=== PATIENT | male | born 1955 | race Caucasian/White ===

== ENCOUNTER → 2021-02-11 12:06 | Outpatient (BNVA) | payer OTHER, SELFPAY | PROVIDERS: Family Provider Family Medicine; Visit Provider Family Medicine | DX: Z01.812 Encounter for preprocedural laboratory examination (principal); Z20.822 Contact with and (suspected) exposure to COVID-19 | CPT/HCPCS: 87635 ==

== ENCOUNTER 2021-02-14 06:01 | Day surgery (SDC) | payer OTHER, SELFPAY ==
[2021-02-12 14:04] VITALS: BMI 24.3
[2021-02-14 06:20] VITALS: BP 109/81; PULSE 78; RESP 16; TEMP 36.3; O2SAT 96
[2021-02-14] MEDS: sodium chloride 0.9% 1,000 ML 30 ML IV (06:20)
[2021-02-14 06:34] LABS: Glucose Point of Care 114 mg/dL (70-110)
--- NOTE | 2021-02-14 06:51 | ANES.PREANE2 ---
Pre-Anesthetic Assessment Pre-Anesthetic Assessment: Height/Weight: Height 1.83 m Weight 85.729 kg Temp Pulse Resp BP Pulse Ox 97.3 F L 78 16 109/81 96 02/14/21 06:20 02/14/21 06:20 02/14/21 06:20 02/14/21 06:20 02/14/21 06:20 Preop Diagnosis: history of colon polyps Proposed Procedure: Operation Date: 02/14/21 07:00 Proposed Procedures p Colonoscopy 63184 Z86.01(Not Applicable) - Alex Davis MD Was Beta Jina taken within 24 hours: N/A Was Clonidine taken within 24 hours: N/A Last intake: Intake Last Liquid Date 02/13/21 Last Liquid Time 19:00 Last Solid Date 02/12/21 Last Solid Time 00:00 Social: Social History: No alcohol and No tobacco Exam: Pre-Anes Outpt Exam: alert, oriented x 3, clear to auscultation bilaterally and regular rate & rhythm Airway: Submandibular: WNL Cervical ROM: WNL MP: 2 Dentition: Full Pulmonary: Pulmonary: None reported CV/HEM: CV/HEM: HTN : : None reported Hepatic: Hepatic: None reported GI: GI: GERD (controlled) Metabolic: Metabolic: DM and Hyperlipidemia Musc/skel: Musc/skel: OA/DJD Comments: HIstory of MH, discussed with patient Neuropsych: Neuropsych: None reported Anesthetic Plan: ASA status: 2 Anesthesia: MAC Risk of > 500 ml blood loss (7ml/kg in children): No PFSH Anesthesia PFSH: Family History (Updated 02/12/21 @ 14:03 by Katia Duke) Other Malignant hyperthermia Data Anesthesia Other Labs: Laboratory Results - last 48 hr 02/14/21 06:30 POC Glucose 114 H Cardiac Studies: No Data to Display
--- NOTE | 2021-02-14 07:02 | W.PM.OPSUD ---
Surgery/Procedure H&P Update DATE OF PROCEDURE: February 14, 2021 DATE H&P PERFORMED: 01/22/21 PREOP DIAGNOSIS: history of colon polyps PLANNED PROCEDURE: Operation Date: 02/14/21 07:00 Proposed Procedures p Colonoscopy 50731 Z86.01(Not Applicable) - Alex Davis MD Related Problem List Diagnoses (1) History of colon polyps: We once again discussed the risks of bleeding, perforation, and sedation. The patient and his had no further questions and wished to proceed.
[2021-02-14 07:36] VITALS: BP 113/84; PULSE 98; RESP 16; TEMP 36.1; O2SAT 96
--- NOTE | 2021-02-14 07:37 | ANE.PACU2 ---
Inpatient post-anesthesia follow up: Airway intact: Yes Vital signs: Temperature 97.3 F Pulse Rate 78 Respiratory Rate 16 Blood Pressure 109/81 Pulse Oximetry 96 Oxygen Delivery Me thod Room Air Oxygen Flow Rate Fraction of Inspir ed Oxygen Hydration adequate: Yes Nausea and vomiting: No Pain level: 1 Mental status: Baseline
[2021-02-14 07:55] VITALS: BP 119/77; PULSE 95; RESP 18; O2SAT 97
--- NOTE | 2021-02-14 09:20 | ANE.PACU2 ---
Inpatient post-anesthesia follow up: Airway intact: Yes Vital signs: Temperature 97 F Pulse Rate 95 Respiratory Rate 18 Blood Pressure 119/77 Pulse Oximetry 97 Oxygen Delivery Me thod Room Air Oxygen Flow Rate Fraction of Inspir ed Oxygen Hydration adequate: Yes Nausea and vomiting: No Pain level: 1 Mental status: Baseline
== END 2021-02-14 08:09 | disposition home or self-care (01) ==
PROVIDERS: Visit Provider Family Medicine
PROC: 0DJD8ZZ Inspection of Lower Intestinal Tract, Via Natural or Artificial Opening Endoscopic (ICD-10-PCS; CPT 45378; principal; 2021-02-14 07:00)
DX: Z12.11 Encounter for screening for malignant neoplasm of colon (principal); Z86.010 Personal history of colon polyps; K21.9 Gastro-esophageal reflux disease without esophagitis; E78.2 Mixed hyperlipidemia; E11.9 Type 2 diabetes mellitus without complications; I10 Essential (primary) hypertension; Z79.84 Long term (current) use of oral hypoglycemic drugs
CPT/HCPCS: 12345; 36416; 45378; 82962; 96360; 96361; J2704; J3490; J7030

== ENCOUNTER 2021-10-30 07:06 | Outpatient (CLI) | payer OTHER, MEDICARE, SELFPAY ==
--- NOTE | 2021-10-30 07:13 | MR_ITS ---
WS: [id number] MRI LEFT SHOULDER HISTORY: INJURY OF LEFT ROTATOR CUFF COMPARISON: None available. TECHNIQUE: Multiplanar sequences of the shoulder joint are submitted. Mild AC joint arthritis. Joint space narrowing with a small amount of edema in the acromion. There is mild soft tissue thickening and increased signal. Small amount of fluid in the subacromial and subde ltoid bursa. Osteophyte along the distal undersurface of the acromion with the base measuring 10 mm e ncroaches upon the supraspinatus tendon. Small loose bodies are noted within the bursal fluid. No os acromion. Biceps tendon in the bicipital groove. Small amount of increased fluid in the biceps tendon sheath. Bursal surface tear involving the supraspinatus tendon at the level of the acromion. Tear extends lucien roximately 50% through the tendon and there is a additional tendinopathy. Insertion site tear of the anterior supraspinatus also noted. No retraction of the tendon. There is also focal tear in the subsc apularis tendon seen best on the sagittal T2 with fat saturation. Infraspinatus tendon is intact. Moderate amount of fluid in the subscapularis recess with small loose bodies. Minimally complex tear involving the base of the superior labrum. Mildly high riding humeral head. No fracture or marrow edema at the humeral head. MR/MR shoulder LT wo con* [id number] IMPRESSION: 1. Bursal surface tear involving 50% supraspinatus tendon at the level of the acromial spur. 2. Additional insertion site tear supraspinatus tendon without retraction. 3. Focal linear increased signal in the distal subscapularis tendon highly lexi picious for tear. No retraction. 4. Small loose bodies in the subacromial and some bursal fluid and also the silverio bscapularis recess. 5. Mild AC joint arthritis with encroachment upon the rotator cuff by osteophy te disease.
== END 2021-10-30 07:07 | disposition home or self-care (01) ==
LOC: RAD 07:09
PROVIDERS: PCP Family Medicine; Visit Provider Family Medicine
DX: S46.002A Unspecified injury of muscle(s) and tendon(s) of the rotator cuff of left shoulder, initial encounter (principal); M75.102 Unspecified rotator cuff tear or rupture of left shoulder, not specified as traumatic; X58.XXXA Exposure to other specified factors, initial encounter
CPT/HCPCS: 73221

== ENCOUNTER 2022-10-23 05:45 | Day surgery (SDC) | payer MEDICARE, OTHER, SELFPAY ==
[2022-10-05 10:11] VITALS: BMI 27.8
[2022-10-23 06:03] VITALS: BP 137/85; PULSE 64; RESP 18; TEMP 36.3; O2SAT 97
[2022-10-23] MEDS: sodium chloride 0.9% 1,000 ML 30 ML IV (06:25)
[2022-10-23] MEDS: acetaminophen 1,000 MG/100 ML PIGGYBACK 400 MG IV (06:25)
[2022-10-23 06:27] LABS: Glucose Point of Care 174 mg/dL (70-110)
--- NOTE | 2022-10-23 06:34 | ANES.PREANE2 ---
Pre-Anesthetic Assessment Height/Weight: Height 1.83 m Weight 92.986 kg Temp Pulse Resp BP Pulse Ox O2 Del Method 97.4 F L 64 18 137/85 97 10/23/22 06:03 10/23/22 06:03 10/23/22 06:03 10/23/22 06:03 10/23/22 06:03 10/23/22 06:03 Preop Diagnosis: Left middle finger trigger Operation Date: 10/23/22 07:00 Proposed Procedures p Left long trigger finger 73716,M65.30(Left) - Steve Murphy DO Familial anesthetic complications: Significant family history of MH. discussed with patient Local/MAC planned, machine prepared according to manufacture requirement. Last intake: Intake Last Liquid Date 10/22/22 Last Liquid Time 21:00 Last Solid Date 10/22/22 Last Solid Time 19:30 Social No alcohol and No tobacco Airway Mallampati: Class II Pulmonary None reported CV/HEM Hypertension (on medication) None reported Hepatic None reported GI Gastroesophageal Reflux Disease Metabolic Diabetes Mellitus and Hyperlipidemia [facility] Osteoarthritis/DJD Neuropsych None reported Anesthetic Plan ASA status: 3 Medications/Allergies Home Medications Medication Instructions Recorded Confirmed Last Taken Type atorvastatin 40 mg tablet 40 mg PO DAILY 02/12/21 10/05/22 10/21/22 History esomeprazole magnesium 20 mg 20 mg PO DAILY 02/12/21 10/05/22 10/22/22 History capsule,delayed release (Nexium) lisinopril 10 mg tablet 10 mg PO BID 02/12/21 10/05/22 10/22/22 History metformin 500 mg tablet,extended 500 mg PO BID 02/12/21 10/22/22 10/22/22 History release 24 hr hydrocodone 5 mg-acetaminophen 325 1 tab PO 3XD PRN pain 3 days #9 10/23/22 Unknown Rx mg tablet tabs Allergies Allergy/AdvReac Type Severity Reaction Status Date / Time secobarbital [From Seconal] Allergy Unknown Verified 09/21/22 08:31 succinylcholine Allergy Unknown Verified 09/21/22 08:31 [facility] Anesthesia Medical History (Updated 09/25/22 @ 17:16 by Steve Murphy DO) Trigger finger, left middle finger Trigger finger, right middle finger Family History Other Malignant hyperthermia Social History Smoking and tobacco status: never smoked Data Anesthesia Cardiac Studies: No Data to Display
--- NOTE | 2022-10-23 06:39 | W.PM.OPSFHP ---
Same Day Surgery H&P Indication for Procedure/HPI DATE OF PROCEDURE: October 23, 2022 CHIEF COMPLAINT/INDICATIONFOR SURGICAL PROCEDURE: Left middle finger trigger PREOP DIAGNOSIS: Left middle finger trigger PLANNED PROCEDURE: Operation Date: 10/23/22 07:00 Proposed Procedures p Left long trigger finger 40970,M65.30(Left) - Steve Murphy DO Patient's been seen and worked up in the outpatient setting.. He has bilateral middle finger trigger fingers. The been locking for almost 2 years. At this point I will mechanically lock and he is to unlock them with his other fingers. He is tried medications without relief. This point time would like to forego corticosteroid injections and would like to have his trigger finger release. We will start with his left middle trigger finger. Medications/Allergies* Home Medications Medication Instructions Recorded Confirmed Type atorvastatin 40 mg tablet 40 mg PO DAILY 02/12/21 10/05/22 History esomeprazole magnesium 20 mg 20 mg PO DAILY 02/12/21 10/05/22 History capsule,delayed release (Nexium) lisinopril 10 mg tablet 10 mg PO BID 02/12/21 10/05/22 History metformin 500 mg tablet,extended 500 mg PO BID 02/12/21 10/22/22 History release 24 hr Allergies/Adverse Reactions Allergy/AdvReac Type Severity Reaction Status Date / Time secobarbital [From Seconal] Allergy Unknown Verified 09/21/22 08:31 succinylcholine Allergy Unknown Verified 09/21/22 08:31 Pertinent History/Comorbid Conditions* Medical History (Updated 09/25/22 @ 17:16 by Steve Murphy DO) Trigger finger, left middle finger Trigger finger, right middle finger Family History (Updated 02/12/21 @ 14:03 by Katia Duke RN) Malignant hyperthermia Social History Smoking and tobacco status: never smoked Pertinent Exam Findings alert, oriented x 3, operative site marked and procedure specific exam findings Examination of the left hand demonstrates severe tenderness to palpation over the left A1 juanjo of the middle finger.? Patient can mechanically trigger and has to use his other hand to unlock his left middle finger consistent with trigger finger.? Severe pain over the A1 juanjo.? No triggering noted to the thumb index ring or small finger.? Sensation intact to light touch distally.? Negative exam findings of carpal tunnel syndrome or cubital tunnel syndrome. Recommendations Surgery/Procedure today Other Plans: Plan for or today for left middle finger trigger release. In the office we detailed out the risk benefits complication alternatives to surgical and nonsurgical treatment options. Understanding his risks he agrees to proceed with surgical intervention. All questions been answered at this time. Consent signed and preoperative area today and reviewed with patient. Patient elects proceed with surgery. Coding Level of Care Code Acute Code for Chg Fwd Time Spent (min) 15
[2022-10-23] MEDS: ketorolac 30 mg/mL INJ IVP (06:52)
[2022-10-23] MEDS: ceFAZolin 2,000 MG in sodium chloride 0.9% (plus) 50 ML 100 MG IV (06:56)
[2022-10-23 07:04] LABS: Anion Gap 17.3 (5-19); Blood Urea Nitrogen 14 mg/dL (8-23); Calcium 8.9 mg/dL (8.5-10.5); Carbon Dioxide 24 mmol/L (22-29); Chloride 101 mmol/L (98-107); Creatinine Clr Calc Pharmacy 95.6455; Glomerular Filtration Rate 84.4 mL/min (90-130); Glucose 172 mg/dL (65-115); Osmolality Calculated 291 mOsm/kg (285-295); Potassium 4.3 mmol/L (3.5-5.1); Sodium 138 mmol/L (136-145)
[2022-10-23 07:30] VITALS: BP 148/86; PULSE 67; RESP 12; TEMP 36.1; O2SAT 97
--- NOTE | 2022-10-23 07:31 | P.OP_ITS ---
Operative Report Date of procedure: October 23, 2022 Pre-op diagnosis: Preop Diagnosis Left middle finger trigger Post-op diagnosis: Same Procedure done: Left middle finger trigger release Surgeon: Steve Murphy DO Estimated blood loss: 1cc 7mL Complications: None Condition: stable Disposition: same day Brief History: Patient's been seen and worked up in the outpatient setting and findings consistent with preoperative diagnosis of left middle finger trigger. He is failed conservative treatment. Continues to have mechanical locking and catching. Severe pain as well. We talked about treatment options nonoperative versus operative intervention. He is failed conservative treatment at this point and ultimately decided to forego a corticosteroid injection and have this done under a more permanent fix. Patient understands the risk benefits complication alternatives of surgical nonsurgical treatment options. Understanding his risks with surgery he elects proceed with surgical interventio n. Consent obtained in the office. Here today to proceed with surgical intervention. All questions answered. Procedure: Patient was seen and evaluated in the preoperative holding area. Consent was reviewed and signed with patient. Seen evaluated by Anesthesia Department. Once cleared for surgery was brought back to the operative suite. Placed in supine position on the OR table all bony prominences well-padded patient properly secured to the bed. Patient's left arm was then placed to the left armboard. A nonsterile tourniquet applied to the left upper arm. Patient's left upper extremity was then prepped and draped in standard orthopedic fashion. Final timeout performed. Patient received appropriate preoperative antibiotics. Esmarch tourniquet was used exsanguinate the left upper extremity tourniquet insufflated to 250 mmHg. Under sterile aseptic technique local digital block was performed to the left middle finger. Once appropriately anesthetized a standard oblique incision was made centering over the A1 juanjo following patient's flexor crease. Sharp scalpel incision was made only through skin and then switched to Littler dissection scissors and spread longitudinally directly over the flexor tendon sheath. I then mobilized both radially and ulnarly and Kasdan retractors were used and placed by my cardiovascular physician assistant to protect neurovascular bundle. Next I visualized the A1 juanjo and this was incised with a scalpel. I then switched to dissection scissors and released the A1 juanjo both proximally as well as distally to its entirety. Significant tendon sheath fluid was noted consistent with inflammation. Mild fraying of the flexor tendons noted but no tear. At this point I utilized a rag nail and pulled the tendons FDS and FDP out of the incision and no triggering was noted. I then had anesthesia wake up the patient and patient was able to actively flex and extend with no triggering. This point thorough irrigation was performed. Tourniquet deflated hemostasis satisfactory with bipolar. I then subsequently closed the incision with interrupted nylon suture. Xeroform 4 x 4's, Kerlix and an Herminio wrap was applied for a bulky soft dressing. Patient was then subsequently awakened from anesthesia and taken to PACU in stable condition tolerated procedure without issues. Disposition: Patient taken back in stable condition recovering well. Patient will receive appropriate discharge instruction as well as pain medication postoperatively. Patient to follow-up with me in the office in 2 weeks for repe at evaluation and incision check. Patient understands that any questions or concerns and contact the office. All questions answered.
--- NOTE | 2022-10-23 07:31 | PM.OP2 ---
Brief Operative Note Date of procedure: 10/23/22 Pre-op diagnosis: Left middle finger trigger Post-op diagnosis: same Procedure Done: Left middle finger trigger release Surgeon: Steve Murphy Estimated blood loss (mL): 2 Complications: None Post-op Plan: Patient taken to PACU in stable condition. Recovering well. Dressings on in place clean dry and intact. Will receive appropriate discharge instructions as well as pain medication postoperatively. Weightbearing as tolerated and range of motion as tolerated to the hand. We will follow-up with me in the office in 2 weeks. Condition: stable Disposition: same day Coding Level of Care Code Acute Code for Gayle Johnston
--- NOTE | 2022-10-23 07:31 | PM.PACU ---
PACU note Narrative: Patient seen and examined in PACU recovering well. Dressing on in place clean dry and intact. Patient is able to wiggle fingers. Brisk cap refill less than 2 seconds. Decreased sensation to the left middle finger secondary to local anesthesia. Exam: awake Disposition: discharged
[2022-10-23 07:35] VITALS: BP 149/79; PULSE 70; RESP 16; O2SAT 95
[2022-10-23 07:40] VITALS: BP 150/84; PULSE 65; RESP 18; TEMP 36.2; O2SAT 95
[2022-10-23 07:47] VITALS: BP 163/98; PULSE 62; RESP 16; TEMP 36.3; O2SAT 97
[2022-10-23 08:00] VITALS: BP 166/94; PULSE 54; RESP 18; O2SAT 96
--- NOTE | 2022-10-23 14:03 | ANE.PACU2 ---
Inpatient post-anesthesia follow up: Airway intact: Yes Vital signs: Temperature 97.4 F Pulse Rate 54 Respiratory Rate 18 Blood Pressure 166/94 Pulse Oximetry 96 Oxygen Delivery Me thod Room Air Oxygen Flow Rate 6 Fraction of Inspir ed Oxygen Hydration adequate: Yes Nausea and vomiting: No Pain level: 1 Mental status: Baseline
== END 2022-10-23 08:28 | disposition home or self-care (01) ==
PROVIDERS: Anesthesiology; PCP Family Medicine; Visit Provider Student in an Organized Health Care Education/Training Program
PROC: (CPT 26055; principal; 2022-10-23 07:00)
DX: M65.332 Trigger finger, left middle finger (principal); I10 Essential (primary) hypertension; K21.9 Gastro-esophageal reflux disease without esophagitis; E11.9 Type 2 diabetes mellitus without complications; E78.5 Hyperlipidemia, unspecified; Z79.84 Long term (current) use of oral hypoglycemic drugs
CPT/HCPCS: 26055; 36416; 80048; 82962; A4216; J0131; J0690; J1885; J2704; J2795; J3010; J3490; J7030

== ENCOUNTER 2023-01-06 06:00 | Outpatient (RCR) | payer MEDICARE, OTHER, SELFPAY | END 2023-01-10 23:59 | disposition home or self-care (01) | LOC: SOT 06:00 | PROVIDERS: Visit Provider Student in an Organized Health Care Education/Training Program | DX: Z47.89 Encounter for other orthopedic aftercare (principal) | CPT/HCPCS: 97110; 97165 ==

== ENCOUNTER 2023-01-11 06:00 | Outpatient (RCR) | payer MEDICARE, OTHER, SELFPAY | END 2023-02-10 23:59 | disposition home or self-care (01) | LOC: SOT 06:00 | PROVIDERS: Visit Provider Student in an Organized Health Care Education/Training Program | DX: Z47.89 Encounter for other orthopedic aftercare (principal) | CPT/HCPCS: 97022; 97035; 97110; 97140; 97165 ==

== ENCOUNTER → 2023-02-25 07:08 | Outpatient (BNVA) | payer MEDICARE, OTHER, SELFPAY | PROVIDERS: Visit Provider Student in an Organized Health Care Education/Training Program | DX: M65.331 Trigger finger, right middle finger (principal); M65.341 Trigger finger, right ring finger | CPT/HCPCS: 99214 ==

== ENCOUNTER 2023-03-03 05:37 | Day surgery (SDC) | payer MEDICARE, OTHER, SELFPAY ==
[2023-03-02 12:31] VITALS: BMI 27.8
[2023-03-03] VITALS (7 sets, daily range): BP systolic 119–159; BP diastolic 74–94; PULSE 55–65; RESP 16; TEMP 36.1–36.6; O2SAT 93–96
[2023-03-03 06:13] LABS: Glucose Point of Care 133 mg/dL (70-110)
[2023-03-03] MEDS: acetaminophen 1,000 MG/100 ML PIGGYBACK 400 MG IV (06:20)
[2023-03-03] MEDS: ketorolac 30 mg/mL INJ IVP (06:27)
[2023-03-03] MEDS: sodium chloride 0.9% 1,000 ML 30 ML IV (06:27)
--- NOTE | 2023-03-03 06:44 | W.PM.OPSUD ---
Surgery/Procedure H&P Update DATE OF PROCEDURE: March 03, 2023 DATE H&P PERFORMED: 02/25/23 CHANGES TO PREVIOUS DOCUMENTATION: None. No changes in HPI from 02/25/2023. Patient understands risk benefits complication alternatives of surgery and elects proceed with right ring finger and right middle finger trigger release. Patient understands and agrees to current plan. All questions answered. PREOP DIAGNOSIS: right ring and right middle finger trigger PRIMARY INDICATION FOR PROCEDURE: Right ring and right middle trigger finger PLANNED PROCEDURE: Operation Date: 03/03/23 07:00 Proposed Procedures p right ring and right middle finger trigger finger release 79781,M65.331, M65.341,M79.643(Right) - Steve Murphy DO
[2023-03-03] MEDS: ceFAZolin 2,000 MG in sodium chloride 0.9% (plus) 50 ML 100 MG IV (06:58)
--- NOTE | 2023-03-03 07:46 | PM.OP2 ---
Brief Operative Note Date of procedure: 03/03/23 Pre-op diagnosis: Right ring finger and right middle finger trigger Post-op diagnosis: same Procedure Done: 1.?Right ring finger trigger release 2.?Right middle finger trigger release Surgeon: Steve Murphy Estimated blood loss (mL): 3 Complications: None Post-op Plan: Patient taken to PACU in stable condition recovering well. Pain controlled. Patient will receive appropriate discharge instructions as well as pain medication postoperatively. Patient to follow-up in the orthopedic office in 2 weeks. Condition: stable Disposition: same day Coding Level of Care Code Acute Code for Gayle Johnston
--- NOTE | 2023-03-03 07:51 | P.OP_ITS ---
Operative Report Date of procedure: March 03, 2023 Pre-op diagnosis: Preop Diagnosis right ring and right middle finger trigger Procedure: Post-op diagnosis: ?same Procedure done: Right Middle Finger trigger release Right Ring Finger trigger release Surgeon: Steve Murphy DO Estimated blood loss: 3 mL Tourniquet time 13 minutes Anesthesia: Local/MAC Complications: None Condition: stable Disposition: same day Brief History: Patient been seen and evaluated in the outpatient setting for right middle and ring finger trigger consistent with preoperative diagnosis.?? we talked about treatment options far as nonoperative and operative intervention.? Given patient's severe mechanical triggering and disabling of daily activities as well as pain he would like to have this taken care of more permanently with surgical intervention.? At this point time through shared decision making patient would like to proceed with a right middle and ring finger trigger releases surgery. we talked about the risk benefits complication alternatives to each treatment option understanding his risk for surgery patient agrees to proceed with silverio rgical intervention.? All questions answered.? Consent reviewed and signed with patient. Procedure: Patient presented to the preoperative holding area consent was reviewed and signed with patient.? Correct extremity/digits was then marked.? Patient seen evaluated by anesthesia once cleared for surgery was taken back to the operative suite.? Transported on the OR table in supine position all bony prominences well-padded patient was appropriate secured to bed.? Armboard was applied to the right arm.??Nonsterile tourniquet applied to the right upper arm.? Patient underwent anesthesia per the anesthesia department.? Patient's right upper extremity was then prepped and draped in standard orthopedic fashion.? Final timeout performed.? Patient received appropriate preoperative antibiotics. Under sterile aseptic technique a local digital block was then performed for planned incision site of the right middle and ring finger.? Esmarch tourniquet was used exsanguinate the right upper extremity.? Tourniquet was insufflated to 250 mmHg. A standard horizontal/oblique incision centering over the right ring and middle fingers I incorporated patient's distal palmar crease in order to high the i ncision and to follow with Garrick's lines. Sharp scalpel incision was made strictly through just skin.? I then switched to Littler dissection scissors and dissected and spread longitudinally in the planes of the neurovascular bundle and longitudinally in line with the flexor tendon sheath starting over the middle finger.? Once soft tissue mobilized over the tendon I then placed Kasdan retractors to protect the neurovascular bundle and identified the proximal portion of the A1 juanjo.? This was then incised with a sharp scalpel and then switched to dissection scissors to complete the A1 juanjo release distally.? FDS and FDP tendons were intact.? I utilized a rag nail to pull the tendon through the incision site and inspected each of the FDS and FDP tendons which no evidence of tear or rupture.? No evidence of clicking noted.? Next I switched my plan of dissection over the right ring finger. Through the same incision I spread longitudinally in-plane with the ring finger directly over the flexor tendon sheath. Spread longitudinally in the planes of the neurovascular bundle and longitudinally in line with the flexor tendon sheath. With soft tissue mobilized over the tendon I placed Kasdan retractors to protect the neurovascular bundles and identified the proximal portion of A1 juanjo I then sized this with sharp scalpel incision was switched to Littler dissection scissors to complete the A1 juanjo release distally in the ring finger. FDS and FDP tendons were intact. I used a rag nail to pull the tendon through the incision inspected each tendon and they were healthy with no evidence of tear or rupture. No evidence of triggering or clicking was noted. Patient was then awakened from MAC anesthetic and instructed to make a fist and confirmed that there was no recurrent triggering.? This completed the procedure tourniquet was deflated hemostasis satisfactory bipolar electrocautery.? I then thoroughly irrigated the incision site and then closed the incision with interrupted nylon suture.? Incision dressed with Xeroform 4 x 4's fluffs Kerlix and an Herminio wrap.? Patient was then taken to PACU in stable condition. Disposition: Patient taken PACU in stable condition recovering well dressings on in place clean dry and intact.? Patient receive appropriate discharge structure as well as pain medication postoperatively.? Patient follow-up in the orthopedic office in 2 weeks.? Patient understands agrees with current plan.? All questions answered.
--- NOTE | 2023-03-03 07:51 | PM.PACU ---
PACU note Narrative: Patient taken to PACU in stable condition recovering well dressings on in place clean dry and intact fingertips warm well-perfused brisk capillary refill less than 2 seconds patient is able to wiggle fingers as well as make a fist without any triggering. Decreased sensation of the middle and ring secondary to local anesthesia Exam: awake Disposition: discharged
--- NOTE | 2023-03-03 09:43 | ANES.PREANE2 ---
Pre-Anesthetic Assessment Height/Weight: Height 1.83 m Weight 92.986 kg Temp Pulse Resp BP Pulse Ox O2 Del Method 98 F 62 16 158/80 96 Room Air 03/03/23 08:00 03/03/23 08:15 03/03/23 08:15 03/03/23 08:15 03/03/23 08:15 03/03/23 08:15 Preop Diagnosis: right ring and right middle finger trigger Operation Date: 03/03/23 07:00 Proposed Procedures p right ring and right middle finger trigger finger release [id number],M65.331, M65.341,M79.643(Right) - Steve Murphy, Familial anesthetic complications: Fm Hx MH Was Beta Jina taken within 24 hours: N/A Was Clonidine taken within 24 hours: N/A Last intake: Intake Last Liquid Date 03/02/23 Last Liquid Time 19:00 Last Solid Date 03/02/23 Last Solid Time 19:00 Social No alcohol and No tobacco Exam alert, oriented x 3, clear to auscultation bilaterally and regular rate & rhythm Airway Submandibular: within normal limits Cervical ROM: within normal limits Mallampati: Class II Dentition: full CV/HEM Hypertension GI Gastroesophageal Reflux Disease Metabolic Diabetes Mellitus and Hyperlipidemia Anesthetic Plan ASA status: 3 Anesthesia: MAC Other: precautions Medications/Allergies Home Medications Medication Instructions Recorded Confirmed Last Taken Type atorvastatin 40 mg tablet 40 mg PO DAILY 02/12/21 03/03/23 03/02/23 History esomeprazole magnesium 20 mg 20 mg PO DAILY 02/12/21 03/03/23 03/02/23 History capsule,delayed release (Nexium) lisinopril 10 mg tablet 10 mg PO BID 02/12/21 03/03/23 03/02/23 History metformin 500 mg tablet,extended 500 mg PO BID 02/12/21 03/03/23 03/02/23 History release 24 hr doxycycline hyclate 100 mg capsule 100 mg PO BID 03/02/23 03/03/23 03/02/23 History hydrocodone 5 mg-acetaminophen 325 1 tab PO Q6H PRN pain 5 days #20 03/03/23 Unknown Rx mg tablet tabs ondansetron 4 mg disintegrating 4 mg PO DAILY 5 days #5 tabs 03/03/23 Unknown Rx tablet Allergies Allergy/AdvReac Type Severity Reaction Status Date / Time secobarbital [From Secon[place]] Allergy Unknown Verified 03/02/23 12:28 succinylcholine Allergy Unknown Verified 03/02/23 12:28 Current Medications Generic Name Dose Route Start Last Admin Trade Name Ruddyq PRN Reason Stop Dose Admin Sodium Chloride 1,000 mls @ 30 mls/hr 03/03/23 06:45 03/03/23 06:27 Sodium Chloride 0.9% IV 03/04/23 06:44 30 mls/hr .Q24H FABIO Administration PFSH Anesthesia Medical History Trigger finger, left middle finger Trigger finger, right middle finger Family History Other Malignant hyperthermia Social History Smoking and tobacco status: never smoked Data Anesthesia Cardiac Studies: No Data to Display
--- NOTE | 2023-03-03 14:12 | ANE.PACU2 ---
Inpatient post-anesthesia follow up: Airway intact: Yes Vital signs: Temperature 98 F Pulse Rate 62 Respiratory Rate 16 Blood Pressure 158/80 Pulse Oximetry 96 Oxygen Delivery Me thod Room Air Oxygen Flow Rate Fraction of Inspir ed Oxygen Hydration adequate: Yes Nausea and vomiting: No Pain level: 2 Mental status: Baseline
== END 2023-03-03 09:00 | disposition home or self-care (01) ==
PROVIDERS: PCP Family Medicine; Visit Provider Student in an Organized Health Care Education/Training Program
PROC: (CPT 26055; principal; 2023-03-03 07:00)
DX: M65.351 Trigger finger, right little finger (principal); M65.331 Trigger finger, right middle finger; E11.9 Type 2 diabetes mellitus without complications; I10 Essential (primary) hypertension; E78.5 Hyperlipidemia, unspecified; K21.9 Gastro-esophageal reflux disease without esophagitis; Z79.84 Long term (current) use of oral hypoglycemic drugs
CPT/HCPCS: 26055; 36416; 82962; J0131; J0690; J1885; J2250; J2704; J2795; J3010; J3490; J7030

== ENCOUNTER → 2023-03-15 09:43 | Outpatient (BNVA) | payer MEDICARE, OTHER, SELFPAY | PROVIDERS: PCP Family Medicine; Visit Provider Student in an Organized Health Care Education/Training Program | DX: M65.331 Trigger finger, right middle finger (principal); M65.341 Trigger finger, right ring finger | CPT/HCPCS: 99024 ==

== ENCOUNTER 2023-04-15 08:16 | Outpatient (CLI) | payer MEDICARE, OTHER, SELFPAY ==
--- NOTE | 2023-04-15 | ECG_ITS ---
[facility] Test Date: 2023-04-15 Pat Name: Tony Harris Department: Room: Gender: Male Lighting Fixture Installer: Geeta LoyaRodrigue : 1955 Requested By: Wendi Hope Order Number: [id number] Jeff MD: Cecily Recio M.D. Interpretive Statements NAME OF STUDY: EXERCISE SESTAMIBI STRESS TEST INDICATION: Exertional shortness of Breath Baseline blood pressure of 119/80 mm Hg, heart rate 49 beats per minute and oxygen saturation of 97%. EKG showed sinus bradycardia, normal axis with normal ST-Ts. The patient exercised for 4 minutes 57 seconds on a standard Mariano protocol. Patient attained a maximum heart rate of 141 beats per minute(91% of the maximum predicted heart rate) with a blood pressure at the peak exercise of 153/61 mm Hg oxygen saturation of 96%. The EKG at the peak exercise revealed sinus tachycardia with horizontal and upsloping 1-1/[address] depression in lead II, 3, aVF V3 to V6 with frequent isolated PVCs and PVC couplets noted at peak exercise. Patient did not have any chest pain but did develop throat tightness at peak exercise and in early recovery. Frequent isolated PVCs and occasional PVC couplets noted during exercise. During the recovery phase, there were no new changes. Blood pressure at the end of the recovery phase was 141/80 mm Hg with a heart rate of 89 beats per minute oxygen saturation of 97%. Frequent isolated PVCs and PVC couplets noted in recovery CONCLUSION: 1. Positive EKG response to treadmill exercise with horizontal and upsloping 1-1/[address] depression in lead II, 3, aVF V3 to V6 with frequent isolated PVCs and PVC couplets noted at peak exercise. 2. He developed throat tightness at peak exercise and in early recovery. Frequent isolated PVCs and occasional PVC couplets noted during exercise 3. Fair exercise tolerance, attained a maximum of 7 METs. Maximum VO2 of 24.5 mL/kg/min. 4. Baseline normal blood pressure with normal response to exercise. 5. Perfusion scan will be documented separately. Electronically Signed On 04-15-2023 16:39:25 CDT by Cecily Recio M.D. [id number]
[2023-04-15 08:41] VITALS: BMI 27.8
--- NOTE | 2023-04-15 08:41 | NMCV_ITS ---
NM priti perf SPECT r/s* [id number] Tony Harris Age: 67 Gender: M : 1955 Exam Date: 04/15/2023 08:41 Ordering Phys: Wendi Leyva MD Technologist: MAXIME Albarado Exam Location: [facility] Indications: Chest Pain STRESS TEST Please see separate stress test report in [facility] for full findings IMAGE PROTOCOL Rest/Stress 1 Radiopharmaceutical Dose (mCi) Administration Site Administered by Rest: Tc-99m 10.8 IV MAXIME Albarado Sestamibi Stress:Tc-99m 32.7 IV MAXIME Coto Sestamibi Rest: 15-Apr-2023 60 Discovery 630 Stress: 15-Apr-2023 30 Discovery 630 Images obtained in supine and prone position. Radiopharmaceutical was injected at 86 % maximum heart rate. SPECT RESULTS Technical Quality: Excellent Raw Data Analysis: Normal Image Corrections: No attenuation or motion correction applied Summed Stress Score: 0 Summed Rest Score: 2 Summed Difference Score: 0 PERFUSION FINDINGS SPECT images demonstrate homogeneous tracer distribution throughout the myocardium. FUNCTIONAL RESULTS (calculated via Gated SPECT) Stress Image LV EF (%): 70 Stress EDV (mL):122 TID: 0.95 Stress ESV (mL):36 FUNCTIONAL FINDINGS: The left ventricle is normal in size. Transient Ischemia Dilatation of 0.95. The left ventricular ejection fraction is normal with a value of 70%. There is normal left ventricular wall thickening. Normal end-diastolic and end-systolic volumes IMPRESSIONS 1. Myocardial perfusion imaging is normal. 2. Overall left ventricular systolic function is normal without regional wall motion abnormalities, LVEF=70%. 3. Ischemic EKG changes with exercise along with frequent PVCs in bigeminal pattern. Refer to separate report for details. 4. Cardiac catheterization may be considerd. Call correlation is advised. Cecily Recio MD (Electronically Signed) Final Date: 15 April 2023 16:29 S
[2023-04-15 10:00] VITALS: BP 141/80; PULSE 69
== END 2023-04-15 08:17 | disposition home or self-care (01) ==
LOC: CDL 08:17
PROVIDERS: PCP Family Medicine; Visit Provider Family Medicine
DX: R06.00 Dyspnea, unspecified (principal)
CPT/HCPCS: 36415; 78452; 93017; A9500

== ENCOUNTER → 2023-04-26 09:40 | Outpatient (BNVA) | payer MEDICARE, OTHER, SELFPAY | PROVIDERS: PCP Family Medicine; Visit Provider Internal Medicine Cardiovascular Disease | DX: R00.1 Bradycardia, unspecified (principal) | CPT/HCPCS: 93225 ==

== ENCOUNTER → 2023-05-26 09:16 | Outpatient (BNVA) | payer MEDICARE, OTHER, SELFPAY | PROVIDERS: PCP Family Medicine; Referring Provider Family Medicine; Visit Provider Internal Medicine Cardiovascular Disease | DX: R94.39 Abnormal result of other cardiovascular function study (principal); I49.3 Ventricular premature depolarization; R07.9 Chest pain, unspecified; R00.1 Bradycardia, unspecified; I47.1 Supraventricular tachycardia; I10 Essential (primary) hypertension; E78.5 Hyperlipidemia, unspecified; E11.9 Type 2 diabetes mellitus without complications; Z79.84 Long term (current) use of oral hypoglycemic drugs; K21.9 Gastro-esophageal reflux disease without esophagitis | CPT/HCPCS: 99205 ==

== ENCOUNTER 2023-05-28 14:18 | Outpatient (CLI) | payer MEDICARE, OTHER, SELFPAY ==
[2023-05-28 14:38] LABS: Basophils # 0.1 10^3/uL (0.0-0.1); Basophils % 1.1 %; Eosinophils # 0.2 10^3/uL (0.0-0.8); Eosinophils % 2.8 %; Hematocrit 45.1 % (37-53); Lymphocytes # 1.2 10^3/uL (0.8-4.8); Lymphocytes % 21.7 %; Mean Corpuscular HGB Conc 33.5 g/dL (30-55); Mean Corpuscular Hemoglobin 30.3 pg (27-33); Mean Corpuscular Volume 90.6 fl (82-101); Mean Platelet Volume 9.1 fL (7.4-10.4); Monocytes # 0.5 10^3/uL (0.2-0.9); Monocytes % 9.5 %; Neutrophils % 64.3 %; Nucleated Red Blood Cells % 0 %; Platelet Count 291 10^3/cmm (157-399); Red Blood Count 4.98 10^6/uL (3.85-5.65); Red Cell Distribution Width 11.9 % (12.1-15.1); White Blood Count 5.29 10^3/uL (3.29-11.43)
[2023-05-28 14:47] LABS: INR 0.89 (0.8-1.2)
[2023-05-28 14:58] LABS: Anion Gap 15.8 (5-19); Blood Urea Nitrogen 18 mg/dL (8-23); Calcium 9.3 mg/dL (8.5-10.5); Carbon Dioxide 23 mmol/L (22-29); Chloride 102 mmol/L (98-107); Glomerular Filtration Rate 84.2 mL/min (90-130); Glucose 103 mg/dL (65-115); Osmolality Calculated 286 mOsm/kg (285-295); Potassium 3.8 mmol/L (3.5-5.1); Sodium 137 mmol/L (136-145)
== END 2023-05-28 14:19 | disposition home or self-care (01) ==
PROVIDERS: PCP Family Medicine; Visit Provider Internal Medicine Cardiovascular Disease
DX: R07.9 Chest pain, unspecified (principal); R00.1 Bradycardia, unspecified
CPT/HCPCS: 36415; 80048; 85025; 85610

== ENCOUNTER 2023-06-15 07:17 | Outpatient (CLI) | payer OTHER, MEDICARE, SELFPAY ==
[2023-06-15] VITALS (22 sets, daily range): BP systolic 118–157; BP diastolic 73–96; PULSE 42–60; RESP 12–20; TEMP 36.6; O2SAT 95–98; BMI 28.0
--- NOTE | 2023-06-15 07:00 | XACV_ITS ---
Ht: 183 cm Wt: 94 kg BSA: 2.20 m2 Gender: Male : 1955 Any Known Allergies: Other Exam Priority: Routine Indication(s): - Abnormal nuclear perfusion test Procedure(s): Procedure Description: Diagnostic procedure Procedure Description: Left Heart Catheterization Procedure Description: Left ventriculography Procedure Description: Coronary Angiography Diagnostic Cath Status: Elective Diagnostic Findings * Angiography shows a co-dominant dominant system. * No disease noted in the Left Main and Circumflex coronary arteries. 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 No disease noted in LAD. * Right coronary artery with mild diffuse disease in distal vessel. Conclusions 1. No disease noted in the Left Main and Circumflex coronary arteries. 2. 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 3. Right coronary artery with mild diffuse disease in distal vessel. 4. Hyperdynamic left ventricular systolic function. Ejection fraction of 70%. Recommendations * Continue current medical management and risk factor modification. LV EDP: 3 mmHg Ventriculography Ejection Fraction: 65.0 % Left Ventriculography Findings: * Normal left ventricular size and systolic function. * EF 65 %, estimated. Pressures Phase:Rest AO : / ( 0 ) @ 9:45:00 AM 125 / 81 ( 100 ) @ 9:49:00 AM 111 / 82 ( 97 ) @ 9:51:00 AM 115 / 83 ( 100 ) @ 9:54:00 AM 143 / 69 ( 104 ) @ 9:57:00 AM 141 / 53 ( 92 ) @ 9:57:00 AM LV : 147 / 0 / 30 @ 9:56:00 AM 117 / 8 / 3 @ 9:56:00 AM 150 / -5 / 23 @ 9:57:00 AM 146 / -3 / 26 @ 9:57:00 AM Valves Phase:DefaultPhase AV : 1.0 @ 9:05:41 AM AV Mean Gradient: 0.0 @ 9:05:41 AM 0.0 @ 9:05:41 AM Clinical Evaluation EBL: 5mL-10mL Procedural Details Procedure Consent Obtained. Pre-Procedure Time Out. Identified patient by full name and date of as verbalized by the patient/guarantor. Does the consent match the physician's order: Yes. Accurate & Complete Informed Consent: Yes. Inpatient/Outpatient History & Physical on Chart: Yes. If H&P is completed, is and addenduem needed: No; If yes, is the addendum complete: N/A. Visualize and Verify Site with Patient/Guarantor: N/A. Relevant Radiology Images available: N/A. The risks, benefits, and alternatives of sedation and/or procedure were discussed by physician. The patient agrees to continue. Procedure started. [facility] Clinical Fraility Score: 3: Managing Well. Supervisor Metal Hanging Indications: Worsening Angina. Chest Pain Symptom Assessment: Atypical Angina. Cardiovascular Instability: No, stable. Correct patient, site and procedure confirmed by cath team. Current diagnosis: Chest Pain; Abnormal stress test. PERRLA. Strong, equal hand endband sizer bilaterally. Lungs clear x 5 lobes. IV Site on Arrival: 20 gauge in the right anticubital. IV Fluids: 0.9% NaCl at KVO. 0 mL infused prior to laboratory mechanical technician. Pre Procedural Pulses: bilateral posterior tibial was 3+. Pre Procedural Pulses: bilateral dorsalis pedis was 3+. Pre Procedural Pulses: bilateral radial was 3+. Oxygen started at 3liters/min via nasal canula. right groin was prepped with chloroprep then draped in the usual sterile fashion. right radial was prepped with chloroprep then draped in the usual sterile fashion. Physician notified. Baseline sample Acquired. HR: 0 BPM. Physician arrived. Family updated by MD prior to the start of the procedure. Admit Source: Out Patient. Current Diagnosis : Chest Pain. Equipment: 6F - Radial. Cardiac Cath Pack. ACIST Manifold Kit Model BT 2000. Heparinized Saline (2 units/mL), 1000 mL bag. Equipment: 6F - Femoral. Equipment: 5F - Radial. Equipment: 6F - Femoral. Physician scrubbed in. Immediate Pre-Procedure Time Out. Correct Patient: Yes; Correct Procedure: Yes; Correct Site: Yes; Correct Patient Position: Yes; Correct Supplies: Yes; Dried Flammable Prep: Yes; Blood Products Available: N/A;. Lidocaine 1% infiltrated to the right radial. Arterial access obtained. A 5 thai TIG catheter in over exchange wire. Multiple views taken of left coronary artery. Catheter redirected to the RCA. Multiple views taken of right coronary artery. Catheter removed over the wire. A 5 thai Angled Pig catheter in over exchge wire. EDP Sample taken: LV 117/8,3; HR: 51 BPM; SpO2: 98%. LV gram performed in HANLEY @ 10 mL/second for a total of 30 mL. Patient EF: Normal. EDP Sample taken: LV 150/-6,23; HR: 59 BPM; SpO2: 95%. Pullback taken: LV 146/-4,26; AO 143/69(104); Mean: 0mmHg, Peak to Peak: 1mmHg, SEP: 15sec/min; HR: 53 BPM; SpO2: 95%. Catheter removed over the wire. Physician review of films. Physician scrubbed out. A TR Band was successful obtaining hemostatsis at the Right Radial artery insertion site. TR band placed. Hemostasis obtained. Post Procedure: Pulses reassessed and unchanged. PERRLA. Strong, equal hand endband sizer bilaterally. No VTE prophylaxis required. Medication waste: Lido- 2 ml. Nitro- 49.8 mg. Heparin- 1000 units. Total IV fluids: 22 mL. Fluoro: 3:01. Contrast type used: Omnipaque 300 mg/mL, 150 mL bottle. [id number]. Post-op diagnosis: Non Obstuctive CAD. Complications: None. Estimated blood loss: 5mL-10mL. Responsiveness - Normal response to verbal stimuli; alert and oriented, PERRLA. Airway - Unaffected, no intervention required; spontaneous ventilation. Circulation: W/N/L, pulses unchanged. Nausea/Vomiting: No. Procedure completed. Patient transferred by wheelchair to CPRU. Vital chart was stopped. Access Site Site: Right Radial artery Sheath Size: 6 Fr Hemostasis Method: TR Band Hemostasis Success: Successful Procedure Medications Start: 8:45 AM Stop: 8:45 AM Medication: Versed Amount: 1 mg Route: I.V. Start: 8:45 AM Stop: 8:45 AM Medication: Fentanyl Amount: 50 mcg Route: I.V. Start: 8:46 AM Stop: 8:46 AM Medication: Versed Amount: 1 mg Route: I.V. Start: 8:46 AM Stop: 8:46 AM Medication: Fentanyl Amount: 50 mcg Route: I.V. Start: 8:47 AM Stop: 8:47 AM Medication: Nitrogylcerin Amount: 200 mcg Route: I.A. Start: 8:48 AM Stop: 8:48 AM Medication: Heparin Amount: 5000 units Route: I.V. I, the attending physician, have reviewed and verified all procedure medications. Yes, all medications given per verbal order History/Risk Factors Hypertension: Yes Dyslipidemia: Yes Peripheral Arterial Disease (PAD): No Myocardial Infarction (TN): No Obesity: No Renal Disease: No Tobacco Use: Never Prior Interventions PCI: No CABG: No Valve Surgery: No Report Signatures Finalized by Cecily Recio MD on 06/21/2023 12:36 PM
[2023-06-15 07:51] LABS: Glucose Point of Care 154 mg/dL (70-110)
[2023-06-15] MEDS: diphenhydrAMINE 50 mg Capsule PO (08:02)
--- NOTE | 2023-06-15 08:34 | W.PM.OPSUD ---
Surgery/Procedure H&P Update DATE OF PROCEDURE: June 15, 2023 DATE H&P PERFORMED: 05/26/23 PREOP DIAGNOSIS: Abnormal stress test, worsening angina PRIMARY INDICATION FOR PROCEDURE: Structurally normal mitral valve. Trace mitral valve regurgitation. PLANNED PROCEDURE: Operation Date: 06/15/23 08:30 Proposed Procedures p [facility] 30827,R94.39(Left) - Cecily Recio MD PATIENT REASSESSED PRIOR TO SEDATION, WITH NO CHANGE NOTED: Yes PHYSICAL EXAM: alert, oriented x 3, clear to auscultation bilaterally and regular rate & rhythm AIRWAY EVAL/ANESTHESIA PLAN: normal airway, see other exam findings, ASA III, Monitored Anesthesia, Local Anesthesia, Risks, benefits & alternatives of sedation and/or procedure discussed and Patient agrees to continue as planned
--- NOTE | 2023-06-15 09:05 | PC.NURSE ---
Recovery Note Pt arrived to CPRU 4 post cath for recovery. Pt alert and oriented, breathing even and non-labored on room. Pt denies pain. Placed on bedside electronic device monitor, at bedside. Arrived with TR band to right wrist containing 16ml air. Site is asymptomatic, no signs of bleeding or hematoma. Radial pulse palpable. Pt educated on right arm restrictions and reportable signs and symptoms. Call light in reach. Denies needs at this time.
--- NOTE | 2023-06-15 11:30 | PC.NURSE ---
TR BAND REMOVAL 1012 - 2 ml air removed from right radial TR band. Site asymptomatic, no signs of bleeding or hematoma. Radial pulse palpable. 1024 - 2 ml air removed from right radial TR band. Site asymptomatic, no signs of bleeding or hematoma. Radial pulse palpable. 1034 - 1 ml air removed from right radial TR band. Site asymptomatic, no signs of bleeding or hematoma. Radial pulse palpable. 1046 - 2 ml air removed from right radial TR band. Site asymptomatic, no signs of bleeding or hematoma. Radial pulse palpable. 1056- 2 ml air removed from right radial TR band. Site asymptomatic, no signs of bleeding or hematoma. Radial pulse palpable. 1108- 2 ml air removed from right radial TR band. Site asymptomatic, no signs of bleeding or hematoma. Radial pulse palpable. 1119- 2 ml air removed from right radial TR band. Site asymptomatic, no signs of bleeding or hematoma. Radial pulse palpable. 1125 - 2 ml air removed from right radial TR band. Site asymptomatic, no signs of bleeding or hematoma. Radial pulse palpable. TR band deflated and left in place to monitor for bleeding. 1140- Site remains clean and dry, no signs of bleeding or hematoma. Deflated TR band removed and placed clean bandage over site.
--- NOTE | 2023-06-15 12:48 | PC.NURSE ---
Radial Site Pt was given discharge instructions, IV removed. Pt got dressed and walked to restroom. Upon returning to restroom site was checked again, bleeding observed through bandage. Bandage removed and observed large hematoma. Manual pressure held and hematoma expressed. TR band placed on site with 10ml air. Pt placed back on panel monitor. Dr. Recio notified by phone.
--- NOTE | 2023-06-15 13:48 | PC.NURSE ---
Floor bed received to finished extended recovery. Report called to ANGEL Phoenix. Pt taken down to CSU 103 by wheelchair at this time.
--- NOTE | 2023-06-15 17:40 | PC.NURSE ---
Patient has a TR-band on his right wrist. 1ml of air is removed at 1410. 2ml's of air is removed at 1435. 2ml's of air is removed at 1530. 2ml's of air is removed at 1548. 2ml's of air is removed at 1605. TR-band is removed at 1615. No hematoma is noted. A 2 x 2 and tegaderm dressing is applied. Patient has been up to use the restroom and is dressed. Site is assessed and is dry and intact one hour after removal of the TR-band. Patient is taken to car via a wheelchair with his .
== END 2023-06-15 17:26 | disposition home or self-care (01) ==
LOC: CCL 12:13 → CSU 13:57
PROVIDERS: PCP Family Medicine; Visit Provider Internal Medicine Cardiovascular Disease
DX: R94.39 Abnormal result of other cardiovascular function study (principal); I25.10 Atherosclerotic heart disease of native coronary artery without angina pectoris; I10 Essential (primary) hypertension; E78.5 Hyperlipidemia, unspecified; E11.9 Type 2 diabetes mellitus without complications; Z79.84 Long term (current) use of oral hypoglycemic drugs; K21.9 Gastro-esophageal reflux disease without esophagitis; Z85.46 Personal history of malignant neoplasm of prostate; I49.3 Ventricular premature depolarization
CPT/HCPCS: 36415; 36416; 82962; 93458; 96361; 96365; 99152; 99153; C1769; C1887; C1894; J1644; J2250; J3010; J3490; J7030; Q0163; Q9967

== ENCOUNTER → 2023-07-08 15:17 | Outpatient (BNVA) | payer OTHER, MEDICARE, SELFPAY | PROVIDERS: PCP Family Medicine; Visit Provider Nurse Practitioner Family | DX: Q24.5 Malformation of coronary vessels (principal) | CPT/HCPCS: 99213 ==